=== PATIENT | female | born 1995 | race Caucasian/White ===

== ENCOUNTER 2017-01-18 22:33 | Emergency (ER) | payer SELFPAY ==
[2017-01-18] MEDS ORDERED: Ibuprofen 200 MG TAB ONE (23:06)
--- NOTE | 2017-01-18 23:49 | RAD ---
THREE VIEWS LEFT ANKLE 01/18/2017 HISTORY: Left ankle pain. The patient fell coming out of a travel trailer. FINDINGS: Ankle mortise is congruent. There is no fracture, dislocation, or other osseous abnormality. IMPRESSION: No acute fracture of the left ankle. POS: [facility]
== END 2017-01-18 23:10 | disposition home or self-care (01) ==
LOC: NAV ERS 22:33
DX: S93.402A Sprain of unspecified ligament of left ankle, initial encounter (principal); F90.9 Attention-deficit hyperactivity disorder, unspecified type; F17.210 Nicotine dependence, cigarettes, uncomplicated; W19.XXXA Unspecified fall, initial encounter